=== PATIENT | male | born 1980 | race African-American/Black ===

== ENCOUNTER 2020-06-09 12:30 | Emergency (ER) | payer MEDICAID, OTHER ==
[~2020-06-09] VITALS: Ht 167.6 cm; Wt 65.8 kg
[2020-06-09 14:15] VITALS: BP 135/87
== END 2020-06-09 15:11 | disposition home or self-care (01) ==
LOC: ER 12:30
DX: S09.90XA Unspecified injury of head, initial encounter (principal); Y08.89XA Assault by other specified means, initial encounter; Y93.89 Activity, other specified; Y92.89 Other specified places as the place of occurrence of the external cause; Y99.8 Other external cause status
CPT/HCPCS: 70450